=== PATIENT | male | born 1990 | race American Indian/Alaskan Native ===

== ENCOUNTER 2017-07-20 19:18 | Emergency (ER) | payer OTHER ==
[2017-07-20] MEDS ORDERED: MOTRIN PO ONE (20:09)
--- NOTE | 2017-07-20 22:11 | XRay Report ---
FINAL REPORT PROCEDURE: XR FOOT 2V RT TECHNIQUE: RIGHT foot radiographs, AP and lateral views. HISTORY: pain COMPARISON: No prior studies are available for comparison. FINDINGS: Fracture (s) and/or Dislocation(s): None . Alignment: Normal. Joint space(s): Normal. Soft tissues: Normal. Bone mineralization: Normal. Foreign bodies: None. Calcaneal spurring: None. IMPRESSION: Normal Examination.
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
[2017-07-20] MEDS ORDERED: NORCO 7.5/325 PO ONE (23:32)
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
[2017-07-21 00:04] VITALS: BP 124/61
== END 2017-07-21 00:05 | disposition home or self-care (01) ==
LOC: ED 19:18
DX: S93.491A Sprain of other ligament of right ankle, initial encounter (principal); J45.909 Unspecified asthma, uncomplicated; V49.49XA Driver injured in collision with other motor vehicles in traffic accident, initial encounter; Y93.89 Activity, other specified; Y92.89 Other specified places as the place of occurrence of the external cause; Y99.8 Other external cause status
CPT/HCPCS: 93005; 93010